=== PATIENT | female | born 1980 | race Caucasian/White ===

== ENCOUNTER 2017-02-22 09:34 | Emergency (ER) | payer MEDICAID ==
[~2017-02-22] VITALS: Ht 160 cm; Wt 67.0 kg
[2017-02-22 09:36] VITALS: Ht 160 cm; Wt 67.0 kg
[2017-02-22 10:44] LABS: ADD SCAN DIFF NO
[2017-02-22 10:50] LABS: BASOPHILS % 0.3 % (0.0-2.0); EOSINOPHILS # 0.1 10^3/ul (0.0-0.5); EOSINOPHILS % 0.9 % (0.0-7.0); HEMATOCRIT 39.2 % (37.0-47.0); HEMOGLOBIN 13.3 g/dl (12.0-16.0); LYMPHOCYTES # 2.4 10^3/ul (0.8-2.9); LYMPHOCYTES % 26.9 % (15.0-51.0); MEAN CORPUSCULAR HEMOGLOBIN 28.5 pg (29.0-33.0); MEAN CORPUSCULAR HGB CONC 33.9 g/dl (32.0-37.0); MEAN CORPUSCULAR VOLUME 84.1 fl (82.0-101.0); MEAN PLATELET VOLUME 9.8 fl (7.4-10.4); MONOCYTE # 0.6 10^3/ul (0.3-0.9); MONOCYTES % 6.1 % (0.0-11.0); NEUTROPHIL # 5.9 10^3/ul (1.6-7.5); NEUTROPHILS % 65.4 % (39.0-77.0); PLATELET COUNT 307 10^3/UL (140-415); RED BLOOD COUNT 4.66 10^6/ul (4.20-5.40); RED CELL DISTRIBUTION WIDTH 13.1 % (11.5-14.5)
[2017-02-22 11:02] LABS: ADD UMIC YES; URINE BILIRUBIN (Dip) NEGATIVE (NEGATIVE); URINE BLOOD (Dip) 3+ (NEGATIVE); URINE COLOR LT. YELLOW (YELLOW); URINE GLUCOSE (Dip) NEGATIVE (NEGATIVE); URINE KETONES (Dip) NEGATIVE (NEGATIVE); URINE LEUKOCYTE ESTERASE (Dip) NEGATIVE (NEGATIVE); URINE NITRITE (Dip) NEGATIVE (NEGATIVE); URINE TOTAL PROTEIN (Dip) NEGATIVE (NEGATIVE); URINE UROBILINOGEN (Dip) 0.2 E.U./dL (0.1-1.0)
--- NOTE | 2017-02-22 11:03 | RADRPT ---
PROCEDURE: US Obstetric less than 14 weeks. CLINICAL INDICATION: , vaginal bleeding TECHNIQUE: Transabdominal and transvaginal imaging of the pelvis was performed. Images are review ed on a high-resolution PACS workstation. COMPARISON: None available FINDINGS: No intrauterine gestational sac is identified. The endometrium is not significantly thickened. Bilateral ovaries are unremarkable. No ovarian torsion, adnexal mass or pelvic free fluid is identified. IMPRESSION: 1. No sonographic evidence of intrauterine or ectopic gestation is seen at this time. Continued ul trasound and/or beta HCG follow-up is recommended to definitively exclude occult ectopic gestation. RPTAT: PP .Eliot Malhotra MD, MD Date Time Electronically viewed and signed by .Eliot Malhotra MD, on 02/22/2017 11:03 .R/
--- NOTE | 2017-02-22 11:10 | ERD ---
ER Documentation Chief Complaint Date/Time DATE: 02/22/17 TIME: 11:09 Chief Complaint vag bleed today , 4 weeks preg HPI Patient is a 36-year-old female who is with a last normal menstrual period of 01/19/17 who presents to the ED with light vaginal bleeding that started yesterday and mild pelvic pain as well. She states that she does have a doctor that she follows up the [facility] but is unsure of name. She denies fever or chills. She denies abdominal pain, nausea, vomiting, diarrhea. She denies chest pain, shortness of breath or difficulty breathing. She denies headache or dizziness. She denies leg pain or swelling. ROS All systems reviewed and are negative except as per history of present illness. Allergies Allergies: Coded Allergies: Chlorpheniramine (Verified Allergy, Mild, RASHES, ITCHING, 06/25/07) Ibuprofen (Verified Allergy, Mild, RASHES, ITCHING, 06/25/07) Pseudoephedrine (Verified Allergy, Mild, RASHES, ITCHING, 06/25/07) PMhx/Soc Medical and Surgical Hx: pt denies Medical Hx, pt denies Surgical Hx History of Surgery: No Anesthesia Reaction: No Hx Neurological Disorder: No Hx Respiratory Disorders: No Hx Cardiac Disorders: No Hx Psychiatric Problems: No Hx Miscellaneous Medical Probl: No Hx Alcohol Use: No Hx Substance Use: No Hx Tobacco Use: No Smoking Status: Never smoker Physical Exam Vitals Vital Signs Date Time Temp Pulse Resp B/P Pulse Ox O2 Delivery O2 Flow Rate FiO2 02/22/17 11:37 98.3 72 19 125/75 100 Room Air 02/22/17 09:36 98.1 98 18 130/71 98 Physical Exam GENERAL: Well-developed, well-nourished female. Appears in no acute distress. LUNG: Clear to auscultation bilaterally. No rhonchi, wheezing, rales or coarse breath sounds. HEART: Regular rate and rhythm. No murmurs, rubs or gallops. ABDOMEN: No scars, ecchymosis or rashes noted. Soft, nontender, and nondistended. Positive bowel sounds in all four quadrants. No rebound tenderness , no guarding. (-) McBurneys point tenderness. No CVA tenderness. BACK: No midline tenderness. Extremities: Equal pulses bilaterally. No peripheral clubbing, cyanosis or edema. No unilateral leg swelling. NEUROLOGIC: Alert and oriented. Moving all four extremities. 5/5 strength in all extremities. Normal speech. Steady gait. SKIN: Normal color. Warm and dry. No rashes or lesions. Capillary refill < 2 seconds Result Diagram: 02/22/17 1025 Results 24 hrs Laboratory Tests Test 02/22/17 10:15 02/22/17 10:25 Urine Color LT. YELLOW Urine Clarity CLEAR Urine pH 5.5 Urine Specific Nikolski <=1.005 Urine Ketones NEGATIVE Urine Nitrite NEGATIVE Urine Bilirubin NEGATIVE Urine Urobilinogen 0.2 E.U./dL Urine Leukocyte Esterase NEGATIVE Urine Microscopic RBC 0-2/HPF Urine Microscopic WBC 0-2/HPF Urine Epithelial Cells RARE Urine Bacteria RARE Urine Hemoglobin 3+ Urine Glucose NEGATIVE% Urine Total Protein NEGATIVE White Blood Count 9.010^3/ul Red Blood Count 4.6610^6/ul Hemoglobin 13.3g/dl Hematocrit 39.2% Mean Corpuscular Volume 84.1fl Mean Corpuscular Hemoglobin 28.5pg Mean Corpuscular Hemoglobin Concent 33.9g/dl Red Cell Distribution Width 13.1% Platelet Count 66877^3/UL Mean Platelet Volume 9.8fl Neutrophils % 65.4% Lymphocytes % 26.9% Monocytes % 6.1% Eosinophils % 0.9% Basophils % 0.3% Nucleated Red Blood Cells % 0.0/100WBC Neutrophils # 5.910^3/ul Lymphocytes # 2.410^3/ul Monocytes # 0.610^3/ul Eosinophils # 0.110^3/ul Basophils # 0.010^3/ul Nucleated Red Blood Cells # 0.010^3/ul Beta HCG, Quantitative 11.9mIU/ml Procedures/MDM ER COURSE: I kept the patient and/or family informed of laboratory and diagnostic imaging results throughout the emergency room course. EKG, MONITORS, & DIAGNOSTIC IMAGING: [place] [address] Radiology Main Line: [phone] DIAGNOSTIC IMAGING REPORT Patient: SOCRATES VALDEZ : 1980 Age: 36 Sex: F MR #: [id number] DOS: 02/22/17 1006 Ordering MD: YANIQUE NOVA PA-C Location: [facility] Room/Bed: PROCEDURE: US Obstetric less than 14 weeks. CLINICAL INDICATION: , vaginal bleeding TECHNIQUE: Transabdominal and transvaginal imaging of the pelvis was performed. Images are reviewed on a high-resolution PACS workstation. COMPARISON: None available FINDINGS: No intrauterine gestational sac is identified. The endometrium is not significantly thickened. Bilateral ovaries are unremarkable. No ovarian torsion, adnexal mass or pelvic free fluid is identified. IMPRESSION: 1. No sonographic evidence of intrauterine or ectopic gestation is seen at this time. Continued ultrasound and/or beta HCG follow-up is recommended to definitively exclude occult ectopic gestation. RPTAT: PP .Eliot Malhotra MD, Date Time Electronically viewed and signed by .Elito Malhotra MD, MD on 02/22/2017 11: 03 .R/ CC: YANIQUE NOVA PA-C LAB INTERPRETATION: CBC showed no evidence of systemic infection or severe anemia. UA showed no evidence of leukocytes, nitrites or hematuria. Urine test was negative. Beta hC.9 RH: O+ MEDICAL DECISION MAKING: This is a [36-year-old female] who presents with here with light vaginal bleeding. Vital signs were reviewed. Patient is afebrile. Patient is not hypoxic. Patient is not toxic or ill-appearing. Her ultrasound is read by radiologist shows No sonographic evidence of intrauterine or ectopic gestation is seen at this time. Continued ultrasound and/or beta HCG follow-up is recommended to definitively exclude occult ectopic gestation. I consulted with Dr. Stinson regarding this patient. Patient likely has a complete . However patient needs to return in 2 days for reevaluation and recheck of beta hCG and ultrasound. Patient did not have any abdominal pain or any other symptoms upon examination. Low suspicion for ovarian torsion, PID, tuboovarian abscess, ectopic , bowel obstruction, pyelonephritis, UTI, appendicitis , cervicitis, septic , molar , HELLP syndrome, preeclampsia, eclampsia, placenta previa, placenta abruptia. DISCHARGE: At this time, patient is stable for discharge and outpatient management with no new complaints during the ER course. Patient was sent home with copy of laboratory studies and imaging studies and to return in 2 days for reevaluation of beta hCG and ultrasound. Results were explained to patient.. Patient will be discharged home with instructions to recheck for new or worsening symptoms such as fever, nausea, weakness, LOC and to follow up with primary care in the next 1-2 days. Patient was advised to return to the ER for any new or worsening symptoms. Plan was discussed and patient and/or family understands and agrees. Home instructions were given. Departure Diagnosis: Primary Impression: Vaginal bleeding in patient at less than 20 weeks gestation Condition: Stable YANIQUE NOVA PA-C Feb 22, 2017 11:10
[2017-02-22 11:23] LABS: BACTERIA,URINE RARE; URINE RBCS 0-2 /HPF (0)
[2017-02-22 11:37] VITALS: BP 125/75; PULSE 72; RESP 19; TEMP 98.3
== END 2017-02-22 11:38 | disposition home or self-care (01) ==
LOC: FTE 09:34
DX: O20.9 Hemorrhage in early pregnancy, unspecified (principal); Z3A.01 Less than 8 weeks gestation of pregnancy
CPT/HCPCS: 36415; 76801; 76817; 81001; 81003; 84702; 85025; 86900; 86901; Z7502

== ENCOUNTER 2017-03-10 18:04 | Emergency (ER) | payer MEDICAID, OTHER ==
[~2017-03-10] VITALS: Ht 160 cm; Wt 68.2 kg
[2017-03-10 18:27] VITALS: Ht 160 cm; Wt 68.2 kg
[2017-03-10] MEDS ORDERED: LORAZEPAM 1 MG TAB PO ONE (22:00)
--- NOTE | 2017-03-10 22:37 | RADRPT ---
PROCEDURE: CHEST - 1 VIEW CLINICAL INDICATION: 36-year-old female with cough. TECHNIQUE: A single frontal PA erect view of the chest was performed. The images were reviewed on a PACS workstation. COMPARISON: None. FINDINGS: The cardiomediastinal silhouette has a normal appearance. The right lung apex is incompletely visual ized. There is a questionable ovoid nodular density within the right upper lung zone measuring appr oximately 11 x 11 mm. There is no evidence for congestive heart failure. There is no evidence for p neumothorax. The osseous structures are intact. IMPRESSION: Questionable right upper lung zone nodular density. .Chilo Aviles MD, MD Date Time Electronically viewed and signed by .Chilo Aviles MD, on 03/10/2017 22:36 .[place]
[2017-03-10 23:32] VITALS: BP 133/85; PULSE 91; RESP 16
[2017-03-10] MEDS ORDERED: FLUT9.9S NASAL (23:37)
[2017-03-10] MEDS ORDERED: BENZ100C70 PO ×2 (23:37→23:46)
[2017-03-10] MEDS ORDERED: CETI10CA PO (23:45)
[2017-03-10] MEDS ORDERED: ACET500C5 PO (23:46)
--- NOTE | 2017-03-10 23:55 | ERD ---
ER Documentation Chief Complaint Date/Time DATE: 03/10/17 TIME: 23:49 Chief Complaint pt has anxiety HPI 36-year-old female patient with a past medical history of anxiety presents to the ED complaining of rhinorrhea, headache, dry cough, nervousness that started intermittently 3 days ago. States that she started to have anxiety since 1 year ago. Reports that her last menses was on January 19, 2017 but denies being . States that she had a spontaneous 15 days ago. States that she tried taking Shae for symptoms but it did not help. Denies any fever, chest pain, shortness of breath, wheezing, weakness, numbness or tingling, dizziness. Denies any recent traveling. Denies any leg swelling. Denies taking any control. Denies being immobile. Denies any recent surgeries or malignancy. ROS All systems reviewed and are negative except as per history of present illness. Medications Home Meds Active Scripts Benzonatate* (Tessalon Perle*) 100 Mg Capsule, 100 MG PO Q8H Y for COUGH, #20 CAP Prov:DAVE ROJAS PA-C 03/10/17 Acetaminophen* (Tylophen*) 500 Mg Capsule, 1 CAP PO Q6H Y for PAIN AND OR ELEVATED TEMP, #20 CAP Prov:DAVE ROJAS PA-C 03/10/17 Cetirizine Hcl* (Zyrtec*) 10 Mg Capsule, 10 MG PO DAILY, #10 TAB.CHEW Prov:DAVE ROJAS PA-C 03/10/17 Allergies Allergies: Coded Allergies: ibuprofen (Verified Allergy, Mild, RASHES, ITCHING, 06/25/07) pseudoephedrine (Verified Allergy, Mild, RASHES, ITCHING, 06/25/07) PMhx/Soc Medical and Surgical Hx: pt denies Medical Hx, pt denies Surgical Hx History of Surgery: No Anesthesia Reaction: No Hx Neurological Disorder: No Hx Respiratory Disorders: No Hx Cardiac Disorders: No Hx Psychiatric Problems: No Hx Miscellaneous Medical Probl: No Hx Alcohol Use: No Hx Substance Use: No Hx Tobacco Use: No Smoking Status: Never smoker Physical Exam Vitals Vital Signs Date Time Temp Pulse Resp B/P Pulse Ox O2 Delivery O2 Flow Rate FiO2 03/10/17 23:32 91 16 133/85 99 Room Air 03/10/17 18:27 98.6 140 24 172/90 98 Physical Exam Const: Fna-zxk-lksmcqwze, well-nourished. In no acute distress. Head: Atraumatic, normocephalic Eyes: Normal Conjunctiva without injection. No purulent discharge. PERRL. EOMI ENT: Normal external ear. Ear canal without erythema. Tympanic membrane pearly monzon without effusion or bulging. Nasal canal clear with normal turbinates. Moist oropharynx without tonsillar exudates. Non-erythematous pharynx. Uvula midline. No drooling. No trismus. Neck: Full range of motion. No meningismus. No cervical lymphadenopathy. Resp: Clear to auscultation bilaterally. No wheezing, rhonchi, rales, or crackles. No accessory muscle use. No retractions. Cardio: Regular rate and rhythm. No murmurs, rubs or gallops. Abd: Soft, non tender, non distended. Normal bowel sounds. No palpable masses. No rebound tenderness. No guarding. Skin: No petechiae or rashes Back: No midline tenderness. No CVA tenderness. Ext: No cyanosis, or edema. Neur: Awake and alert. Psych: Normal Mood and Affect Results 24 hrs Current Medications Medications (Trade) Dose Ordered Sig/Nathalia Route PRN Reason Start Time Stop Time Status Last Admin Dose Admin Lorazepam (Ativan) 1 mg ONCE ONCE PO 03/10/17 22:00 03/10/17 22:01 DC 03/10/17 22:25 Procedures/MDM This is a 36-year-old female patient with no significant past medical history presents to the ED complaining of dry cough, rhinorrhea, headache, nervousness that started intermittently 3 weeks ago. Patient is afebrile and nontoxic- appearing. Patient has a heart rate of 140. Patient was given Ativan here in the ED which improved her symptoms. Initially patient's blood pressure was 172/ 90. Patient's blood pressure was elevated (>120/80) but appears stable without evidence of hypertension emergency or urgency. The patient was counseled about the risks of hypertension and urged to pursue outpatient monitoring and therapy within a week with their primary care physician. Low suspicion for end organ damage. Recheck of patient's blood pressure was 133/85. An EKG and chest x- ray was ordered to further evaluate patient. EKG reviewed and interpreted by Dr. Vo Rate/Rhythm: [101 bpm, Normal Sinus Rhythm] No ectopy, no ST elevations, normal axis. QRS, ST, T-waves: [No changes consistent w/ acute ischemia] Impression: [No evidence of ischemia or arrhythmia] PROCEDURE: CHEST - 1 VIEW CLINICAL INDICATION: 36-year-old female with cough. TECHNIQUE: A single frontal PA erect view of the chest was performed. The images were reviewed on a PACS workstation. COMPARISON: None. FINDINGS: The cardiomediastinal silhouette has a normal appearance. The right lung apex is incompletely visualized. There is a questionable ovoid nodular density within the right upper lung zone measuring approximately 11 x 11 mm. There is no evidence for congestive heart failure. There is no evidence for pneumothorax. The osseous structures are intact. IMPRESSION: Questionable right upper lung zone nodular density. Patient has a questionable right upper lung zone nodular density. Patient is afebrile and has normal vital signs. Low suspicion for acute myocardial infarction, pneumothorax, pneumonia, cardiac tamponade, pulmonary embolism, AAA , aortic dissection, Boerhaave's syndrome, cardiac dysrhythmias,meningitis, intracranial bleed, seizure, stroke, TIA or other emergent conditions. Patient' s physical exam include lungs which were clear to auscultation and a normal pulse oximetry. There is a low suspicion for pneumonia, pneumothorax, mononucleosis, pulmonary embolism, epiglottitis, otitis media, otitis externa, viral/strep pharyngitis, sinusitis, peritonsillar abscess, mastoiditis, retropharyngeal abscess, meningitis, sepsis, acute abdomen or other emergent conditions. This case was discussed with my supervising physician, Dr. Peralta who agreed with the management and discharge plan. Discharge medications: Tessalon Perles, Zyrtec, Tylenol Follow up with primary care physician in 1-2 days for a referral to a air marshal for CXR finding. Instructed patient to return to the ED sooner for any worsening symptoms. Patient's questions were answered. Patient understood and agreed with discharge plan. Patient discharged stable. Departure Diagnosis: Primary Impression: Cough Additional Impressions: Anxiety Rhinorrhea Condition: Stable Patient Instructions: Anxiety Reaction, Cough, Chronic, Uncertain Cause, (Adult ), Allergic Rhinitis Referrals: [facility] Usted se russo hecho un examen mdico de control que le indica que no est en janeen condicin que requiera tratamiento urgente en el Departamento de Emergencia. Un estudio ms profundo y el tratamiento de rahman condicin pueden esperar sin ningn riesgo hasta que usted sea atendida/o en el consultorio de rahman mdico o janeen cl heriberto. Es responsabilidad suya arreglar janeen jasen para el seguimiento del donovan. MANEJO DE CONDICIONES NO URGENTES EN EL FUTURO 1) Si usted tiene un mdico de atencin primaria: Usted debera llamar a rahman mdico de atencin primaria antes de venir al departamento de emergencia. Despus de las horas de consultorio, rahman doctor o rahman asociado/a est disponible por telfono. El mdico o enfermero de julienne en el servicio telefnico puede asesorarle por carolyne medio para atender el problema, o donovan contrario se puede programar janeen jasen. 2) Si usted no tiene un mdico de atencin primaria: Llame al mdico o clnica de referencia que aparece abajo leslie las horas de consultorio para hacer janeen jasen para que le vean. CLINICAS: [facility] [phone] [facility] [phone] [facility] [phone] [address] [facility]. [facility] [phone] [facility] [phone] [address] [facility]. [phone] [address] [facility] () Usted se russo hecho un examen mdico de control que le indica que no est en janeen condicin que requiera tratamiento urgente en el Departamento de Emergencia. Un estudio ms profundo y el tratamiento de rahman condicin pueden esperar sin ningn riesgo hasta que usted sea atendida/o en el consultorio de rahman mdico o janeen cl heriberto. Es responsabilidad suya arreglar janeen jasen para el seguimiento del donovan. MANEJO DE CONDICIONES NO URGENTES EN EL FUTURO 1) Si usted tiene un mdico de atencin primaria: Usted debera llamar a rahman mdico de atencin primaria antes de venir al departamento de emergencia. Despus de las horas de consultorio, rahman doctor o rahman asociado/a est disponible por telfono. El mdico o enfermero de julienne en el servicio telefnico puede asesorarle por carolyne medio para atender el problema, o donovan contrario se puede programar janeen jasen. 2) Si usted no tiene un mdico de atencin primaria: Llame al mdico o condado institucions de referencia que aparece abajo leslie las horas de consultorio para hacer janeen jasen para que le vean. SI USTED NO PUEDE PAGAR PARA NADEEN UN MEDICO puede ir a: [facility] [id number] [place] [address] [facility] [address] [place] [address] [facility] [address] [place] [address] [facility] [address] [place], [place] [id number] [facility] U[facility]ENT [facility]/SPECIALTIES Additional Instructions: Llame al doctor MAANA y edson janeen JASEN PARA DENTRO DE 1-2 ANNA para janeen remisi n a un mdico de pulmn.Dgale a la secretaria que nosotros le instruimos hacer esta jasen.Avise o llame si rahman condicin se empeora antes de la jasen. Regresa aqui si peor o no mejor. DAVE ROJAS PA-C Mar 10, 2017 23:55 DAVE ROJAS PA-C Mar 10, 2017 23:55
== END 2017-03-10 23:57 | disposition home or self-care (01) ==
LOC: FTE 18:04
DX: R05 Cough (principal); J34.89 Other specified disorders of nose and nasal sinuses; R94.31 Abnormal electrocardiogram [ECG] [EKG]
CPT/HCPCS: 71010; 93005; Z7610